=== PATIENT | female | born 1935 | race Caucasian/White ===

== ENCOUNTER → 2016-11-18 20:51 | Outpatient (CLI) | payer MEDICARE ==
[2011-09-23 12:06] VITALS: BMI 24.5
== END | disposition home or self-care (01) ==
LOC: D.LABREF 20:51
DX: R19.7 Diarrhea, unspecified (principal)

== ENCOUNTER 2018-08-01 00:15 | Emergency (ER) | payer MEDICARE ==
[~2018-08-01] VITALS: Ht 167.6 cm; Wt 70.0 kg
[2018-08-01 00:18] VITALS: Ht 167.6 cm; Wt 70.0 kg
[2018-08-01] MEDS ORDERED: BAYER CHEWABLE81 MG PO (00:19)
[2018-08-01] MEDS ORDERED: PULMICORT0.25 MG/1 NEB (00:20)
[2018-08-01] MEDS ORDERED: TARKA PO (00:20)
[2018-08-01] MEDS ORDERED: LEVOXYL75 MCG PO (00:21)
[2018-08-01 01:00] LABS: BASOPHILS 0.3 % (0-2); EOSINOPHILS 3.6 % (0-7); HEMATOCRIT 40.7 % (36.0-48.0); HEMOGLOBIN 13.8 g/dL (12-16); IMMATURE GRANULOCYTES 0.4 % (0-5); LYMPHOCYTES 25.6 % (15-50); MCH 29.9 pg (26.0-34.0); MCHC 33.9 g/dL (31.0-37.0); MCV 88.3 fL (80.0-100.0); MEAN PLATELET VOLUME 9.8 fL (7.4-10.4); MONOCYTES 9.6 % (2-11); NEUTROPHILS 60.5 % (40-80); PLATELET COUNT 300 10x3/uL (130-400); RBC 4.61 10x6/uL (4.00-5.40); RDW 13.3 % (11.5-14.5); WBC 9.8 10x3/uL (4.8-10.8)
[2018-08-01 01:20] LABS: APTT 32.4 SECONDS (22.8-39.4); INR 1.06 (0.85-1.17); PROTIME 13.3 SECONDS (11.6-15.0)
[2018-08-01 01:26] LABS: ALBUMIN 3.9 g/dL (3.4-5.0); ANION GAP 14.7 mmol/L (8-16); BILIRUBIN - TOTAL 0.29 mg/dL (0.2-1.3); CALCIUM 8.8 mg/dL (8.5-10.1); CARBON DIOXIDE 24.9 mmol/L (21.0-32.0); CREATININE - SERUM 0.9 mg/dL (0.6-1.3); POTASSIUM - SERUM 3.6 mmol/L (3.5-5.1); PROTEIN - SERUM 7.1 g/dL (6.4-8.2)
[2018-08-01] MEDS ORDERED: AMOXICILLIN500 M1 PO (01:43)
[2018-08-01 01:55] VITALS: BP 172/69
== END 2018-08-01 01:56 | disposition home or self-care (01) ==
LOC: D.ER 00:15
PROVIDERS: Family Medicine
DX: R04.0 Epistaxis (principal)